=== PATIENT | female | born 1985 | race Caucasian/White ===

== ENCOUNTER 2016-11-07 23:12 | Inpatient (IN) | payer OTHER ==
[2016-11-07 23:24] VITALS: BMI 31.4
[2016-11-08] MEDS ORDERED: OXYTOCIN IN LR 500 ML IV ONE ×2 (01:19→08:33)
[2016-11-08] MEDS ORDERED: IV START KIT ONE (01:21)
[2016-11-08] MEDS ORDERED: OXYTOCIN 10 UNITS/ML VIAL ONE (01:21)
[2016-11-08] MEDS ORDERED: PUMP TUBING ONE (01:22)
[2016-11-08] MEDS ORDERED: LIDOCAINE Viscous 2% 15 ML UDCUP ONE (01:22)
[2016-11-08] MEDS ORDERED: EPIDURAL PUMP SET ONE (01:22)
[2016-11-08] MEDS ORDERED: FENTANYL/ROPIVACAINE EPIDURAL 250 ML EP ONE (01:22)
[2016-11-08] MEDS ORDERED: LIDOCAINE 1% (PRES FREE) 30 ML VIAL ONE (01:22)
[2016-11-08] MEDS ORDERED: MINERAL OIL 25 ML BOT ONE (01:22)
--- NOTE | 2016-11-08 01:33 | PCMAN ---
OB Admission Note - History : 6 Term: 4 Abortions (S&E): 1 Livin EDC:: 11/07/16 Gestational Age (weeks): 40 Days (#/7): 1 Admit Cervical Dilation:: 4.5 Admit Cervical Effacement (%):: 90 Admit Station:: -2 Admit Presentaton:: vertex Membrane Status: Bulging Contractions: Yes Contraction Frequency:: q4 Heart Rate:: 135 Status:: category 1 EFW:: 7.5 lbs Summary of Course:: Care from 15 weeks, but had US at 10 weeks prior to starting care. course essentially normal except for influenza at 30 weeks, treated with Tamiflu. Anatomy survey normal at 20 weeks. Labs normal. - Labs Blood Type: O (+) positive Hct/Hgb:: 11.9 Rubella Status: Immune GBS Status: Negative Abnormal Labs: None Other Labs:: 1 hr glucose 109 - Physical Exam General: Afebrile Neurological: Grossly Intact Lungs: Clear to Auscultation Bilaterally Cardiovascular: Regular Rate and Rhythm Genitourinary: Normal Female Genitalia Rectal Exam: Deferred Extremities: Full ROM Skin: Normal Color, Warm, Dry - Problems (1) Active labor at term Status: Acute Code: [id number]/Plan: P: Admit. Anticipate Requests labor epidural.
[2016-11-08 01:55] LABS: HEMATOCRIT 39.3 % (37.0-47.0); HEMOGLOBIN 13.4 gm/l (12.0-16.0); MEAN CELL VOLUME 87.7 fl (81.0-99.0); MEAN CORPUSCULAR HEMOGLOBIN 29.9 pg (27.0-31.0); MEAN CORPUSCULAR HGB CONC 34.1 g/dl (33.0-37.0); RED CELL DISTRIBUTION WIDTH 13.7 % (11.5-14.5)
[2016-11-08] MEDS: LACTATED RINGERS 1,000 ML IV PRN ×3 (01:57→04:35)
[2016-11-08] MEDS ORDERED: FENTANYL/ROPIVACAINE EPIDURAL 250 ML EP SCH (02:00)
[2016-11-08] MEDS ORDERED: BUPIVACAINE 0.25% (PRES FREE) 30 ML VIAL ONE (02:12)
[2016-11-08] MEDS ORDERED: EPIDURAL PROCEDURE TRAY ONE (02:13)
[2016-11-08] MEDS ORDERED: EPHEDRINE SULFATE 50 MG/ML 1ML VIAL IV PRN (05:10)
[2016-11-08] MEDS ORDERED: LACTATED RINGERS 500 ML IV PRN (05:10)
[2016-11-08] MEDS ORDERED: METOCLOPRAMIDE HCL 5 MG/ML 2ML VIAL IV PRN (05:10)
[2016-11-08] MEDS ORDERED: SODIUM CHLORIDE 0.9% 500 ML IV PRN (05:10)
[2016-11-08] MEDS ORDERED: NALBUPHINE HCL 20 MG/ML AMP IV PRN (05:10)
[2016-11-08] MEDS ORDERED: DIPHENHYDRAMINE HCL 50 MG/1 ML VIAL IV PRN (05:10)
[2016-11-08] MEDS ORDERED: ONDANSETRON 4 MG/2ML 2 ML VIAL IV PRN (05:10)
[2016-11-08] MEDS ORDERED: LACTATED RINGERS 1,000 ML IV SCH (05:10)
[2016-11-08] MEDS ORDERED: NALOXONE HCL 0.4 MG/ML VIAL IV PRN (05:10)
[2016-11-08] MEDS ORDERED: CALCIUM CARBONATE 500 MG TAB.CHEW PO PRN (08:33)
[2016-11-08] MEDS ORDERED: BENZOCAINE/MENTHOL 60 APPLIC/BOT TP PRN (08:33)
[2016-11-08] MEDS ORDERED: ACETAMINOPHEN 325 MG TABLET PO PRN (08:33)
[2016-11-08] MEDS ORDERED: LANOLIN 50 APPLIC/7G TUBE TP PRN (08:33)
[2016-11-08] MEDS ORDERED: LACTATED RINGERS 1,000 ML IV PRN (08:33)
[2016-11-08] MEDS ORDERED: MAGNESIUM HYDROXIDE 30 ML UDCUP PO PRN (08:33)
[2016-11-08] MEDS ORDERED: DOCUSATE SODIUM 100 MG CAPSULE PO PRN (08:33)
[2016-11-08] MEDS ORDERED: HYDROCODONE/ACETAMINOPHEN 5/325MG TABLET PO PRN (08:33)
[2016-11-08] MEDS: IBUPROFEN 800 MG TABLET PO SCH ×3 (09:34→22:16)
[2016-11-08] MEDS ORDERED: OXYTOCIN 10 UNITS in LACTATED RINGERS 1,000 ML IV SCH (15:00)
--- NOTE | 2016-11-08 15:35 | PCMDEL ---
Delivery Note - Labor 1st stage (hr/min):: 6 hrs 35 min 2nd stage (hr/min):: 0 hrs 06 min 3rd stage (hr/min):: 0 hrs 09 min Total (hr/min):: 6 hrs 50 min - Delivery Delivery (Date): 11/08/16 Delivery (Time): 06:41 Infant Gender: Female Weight: 7 lb 11 oz Presentation: Cephalic Position: OA Umbilical Cord: 3 Vessel Delayed Cord Clamping:: > 3 min 1 Minute Total: 9 5 Minute Total: 9 Placenta:: Villafana intact and complete EBL:: 100 Perineum:: intact Suture:: none Anesthesia/Meds:: epidural Length ROM:: at delivery Comments:: Well controlled over intact perineum after normal progression of labor. Baby delivered into arms of mother for skin to skin. Cord clamped and cut after 3 minutes. Spontaneous delivery villafana placenta. AMTSL started immediately after delivery of fetus. EBL 100 cc and fundus firm and at umbilicus. Excellent bonding.
[2016-11-09] MEDS: IBUPROFEN 800 MG TABLET PO SCH ×2 (02:52→10:03)
[2016-11-09 06:50] LABS: HEMATOCRIT 31.6 % (37.0-47.0); HEMOGLOBIN 10.6 gm/l (12.0-16.0)
[2016-11-09 07:44] VITALS: BP 114/72
--- NOTE | 2016-11-09 08:15 | PDOC39B ---
Hospital Course: ADMIT DATE: 11/08/16 DISCHARGE DATE: 11/09/16 ADMISSION DIAGNOSES: uterine contractions PROCEDURES: HISTORY OF PRESENT ILLNESS: 30 year old G6 T4 L4 at 40 weeks 1 days presenting with uterine contractions. Achieved an of a viable female infant. Stable and uncomplicated course. HOSPITAL COURSE: By day of discharge the patient is ambulating, eating, voiding , and passing flatus without difficulty. Pain is controlled and lochia is appropriate. She is without difficulty. Requests ibuprofen and stool softener. plans vasectomy. Has good social support. Prefers to treat mild anemia with dietary changes. - Physical Exam Vital Signs: Temp Pulse Resp BP Pulse Ox 97.9 F 85 18 114/72 11/09/16 07:39 11/09/16 07:39 11/09/16 07:39 11/09/16 07:39 General: Afebrile Psych/Mental Status: Mood/Affect Appropriate, Judgment/Insight Intact, Bonding Well Lungs: Clear to Auscultation Bilaterally Cardiovascular: Regular Rate and Rhythm Breast: Soft, Skin intact, Nipples Intact Fundus: Firm, Midline, At Umbilicus Genitourinary: Normal Female Genitalia Lochia: Moderate Skin: Normal Color - Discharge Diagnosis (1) care and examination of lactating mother Status: AcuteAssessment/Plan: A: 30yo Day 1 s/p Lochia stable without difficulty Mild anemia-asymptomatic P: Education: handout given and reviewed. Warning signs discussed ( bleeding, infection, DVT/PE, mood disorder) : BABIES clinic support PRN Rx: colace & ibuprofen Mild anemia: will increase iron-rich foods in diet Contraception: vasectomy Follow-up: 11/23/16 at 1:40pm in [place] or PRN - Discharge Plan Condition: Stable Disposition: Home Additional Instructions: Congratulations on your little one! You have a 2-week visit scheduled for 11/23/16 at 1:40pm in [place] with Elyse. If you have any questions or concerns, or need to reschedule, please call the clinic at [phone]. Prescriptions: Docusate Sodium [COLACE 100 MG CAPSULE (SHF)] 100 mg PO DAILY PRN #14 cap PRN Reason: Constipation Ibuprofen [Motrin] 1 tab PO Q6H PRN #30 tablet PRN Reason: Pain
== END 2016-11-09 10:39 | disposition home or self-care (01) | DRG 775 ==
LOC: FBC 23:12 → FBCOUT 23:12 → FBC 11-08 01:10
PROVIDERS: ADMIT Advanced Practice Midwife; ATTEND Advanced Practice Midwife
PROC: 10E0XZZ Delivery of Products of Conception, External Approach (ICD-10-PCS; principal; 2016-11-08)
PROC: 00HU33Z Insertion of Infusion Device into Spinal Canal, Percutaneous Approach (ICD-10-PCS; 2016-11-08)
DX: O90.81 Anemia of the puerperium (principal); Z37.0 Single live birth; Z3A.40 40 weeks gestation of pregnancy; Z81.8 Family history of other mental and behavioral disorders